=== PATIENT | female | born 1950 | race African-American/Black ===

== ENCOUNTER → 2017-06-10 | Outpatient (CLI) | payer MEDICARE, OTHER ==
[2017-06-10 15:51] LABS: ADD MAN DIFF? NO
[2017-06-10 15:55] LABS: BASO % 0 % (0-3); EOS # 0.3 x10^3/uL (0.0-0.7); EOS % 4 % (0-3); HEMOGLOBIN 14.1 g/dL (12.0-15.5); LYMPH % 27 % (24-48); MEAN CORPUSCULAR HEMOGLOBIN 31 pg (25-35); MEAN CORPUSCULAR HGB CONC 34 g/dL (31-37); MEAN CORPUSCULAR VOLUME 92 fL (79-100); MONO # 0.5 x10^3/uL (0.0-1.1); MONO % 6 % (0-9); NEUT # 4.8 x10^3uL (1.8-7.7); NEUT % 63 % (31-73); PLATELET COUNT 234 x10^3/uL (140-400); RED BLOOD COUNT 4.55 x10^6/uL (3.50-5.40); RED CELL DISTRIBUTION WIDTH 12.7 % (11.5-14.5); WHITE BLOOD COUNT 7.6 x10^3/uL (4.0-11.0)
[2017-06-10 16:05] LABS: PARTIAL THROMBOPLASTIN TIME 28 SEC (24-38); PROTHROMBIN TIME PATIENT 12.8 SEC (11.7-14.0)
[2017-06-10 16:08] LABS: ALBUMIN 3.8 g/dL (3.4-5.0); ANION GAP 6 (6-14); BLOOD UREA NITROGEN 14 mg/dL (7-20); CALCIUM 9.2 mg/dL (8.5-10.1); CARBON DIOXIDE 33 mmol/L (21-32); CHLORIDE 103 mmol/L (98-107); CREATININE 0.9 mg/dL (0.6-1.0); GFR 75.8; GLUCOSE 84 mg/dL (70-99); POTASSIUM 3.5 mmol/L (3.5-5.1); SODIUM 142 mmol/L (136-145)
[2017-06-10 16:18] LABS: BILIRUBIN,URINE NEGATIVE (NEG); CLARITY,URINE CLEAR; COLOR,URINE YELLOW; GLUCOSE,URINE NEGATIVE (NEG); NITRITE,URINE NEGATIVE (NEG); PH,URINE 7.5; PROTEIN,URINE NEGATIVE (NEG-TRACE); UROBILINOGEN,URINE 0.2 mg/dL (0.2 mg/dL)
[2017-06-10 16:31] LABS: BACTERIA,URINE 0 /HPF (0-FEW); SQUAMOUS EPITHELIAL CELL,UR FEW /LPF; WBC,URINE 0 /HPF (0-4)
[2017-06-10 17:01] LABS: SEDIMENTATION RATE 5 (0-25)
[2017-06-11 00:12] LABS: MRSA BY PCR Negative (Negative)
[2017-06-11 06:16] LABS: HEMOGLOBIN A1C 5.4 % (4.8-5.6)
== END | disposition home or self-care (01) ==
LOC: SURGPAT 14:35
DX: Z01.818 Encounter for other preprocedural examination (principal); R94.31 Abnormal electrocardiogram [ECG] [EKG]
CPT/HCPCS: 36415; 71046; 80048; 81001; 82040; 83036; 85025; 85610; 85651; 85730; 87641; 93005

== ENCOUNTER → 2019-11-13 | Outpatient (CLI) | payer MEDICARE, OTHER ==
[2017-06-24 11:51] VITALS: BP 106/63
[~2019-11-13] MED LIST: ASPI-482 PO; ASPI-630 PO; B CO1TAB10 PO; BIOT1CAP3 PO; CELE200C PO; CHLO25TA10 PO; CHOL2000 PO; DUTA0.5C PO; ESTR0.5T3 PO; FERR142T13 PO; FLAX10003 PO; FLAX1CAP PO; FLUO20DR EACH EAR; GABA-585 PO; HYDR-2145 PO; IOHEXOL 180 MG/ML 10 ML VIAL. ONE; LACT460C PO; LYCO10CA PO; MAGN30TA2 PO; MAGN400C PO; METO100T7 PO; MINO60FO3 TP; MULT-460 PO; OXYC10TA46 PO; POLY17PO29 PO; POTA500T5 PO; TRAM50TA PO; TRAZ-118 PO; VITA-8 PO; VITA100022 PO; VITA150T PO; VITA400C37 PO; WARF4TAB64 PO; WARF4TAB68 PO; WARF5TAB2 PO; ZINC30CA PO; ZINC50TA PO; methylPREDNISolone ACETATE 40 MG/ML VIAL. ONE; methylPREDNISolone ACETATE 80 MG/ML VIAL. ONE
--- NOTE | 2019-11-13 14:13 | PAIN ---
DATE OF SERVICE: 11/13/2019 INITIAL CONSULTATION FOR PAIN CLINIC CHIEF COMPLAINT: Low back and left lower extremity pain. HISTORY OF PRESENT ILLNESS: This is a 69-year-old female, who presents with history of pain in low back and left leg for about a year or so. The patient reports she is not sure when it actually started, but it has been bad for about a year, pain in the low back and the lower extremities. The patient has seen an orthopedic surgeon, thinking it maybe her hip, but this has been checked out and an MRI scan was actually done in the lumbar spine, when the hip was normal and showed some significant degenerative changes involving the lumbar disks and facets, multifactorial neural foraminal stenosis bilaterally, most marked at L4-L5 with near complete loss of disk height and diffuse annular disk bulge with marked bilateral neural foraminal stenosis, slightly worse on the left, L5-S1 shows mild diffuse disk bulge and marked facet arthropathy with moderate bilateral neural foraminal stenosis, worse on the left as well. The patient reports the pain is in the low back and lower extremities, mostly in the posterior gluteus, posterior lateral thighs, anterior thighs, posterior calves with numbness and tingling in both the feet and burning in the feet, which has come up over the last year or so. Also, a vibration sense in the left leg significantly. The patient reports the pain is described as constant, intermittent in intensity, but constant, changes during the day, worse with activity, walking, standing, changing positions with numbness in the low back and legs and vibration sense and burning in the feet. The patient rates her disability rating from 0-10, 10 being the worst, is a 9-10 with family and home responsibilities and occupation, 5-6 with recreation and social activity, 5 with sexual behavior, self-care and life support activities. The patient has had a previous physical therapy. She has also had chiropractic treatments and does exercise currently every day with good results, but only temporary. The patient has had trigger point injections for some fibromyalgia pain she had in the past, which were helpful as well. The patient is taking Celebrex as well as Tylenol PM, both of which helped to a mild extent. PAST MEDICAL HISTORY: Significant for hypertension, celiac sprue, cerebral aneurysms, fibromyalgia, alopecia. PREVIOUS SURGERY: Include a right hip replacement in 2016, left hip replacement as well, cholecystectomy, right ear surgery and appendectomy. CURRENT MEDICATIONS: Include dutasteride, metoprolol, Celebrex, vitamin E, vitamin B, multivitamins, zinc, Fo-Ti, vitamin D, and magnesium. ALLERGIES: THE PATIENT IS ALLERGIC TO CODEINE AND PERCOCET. FAMILY HISTORY: Significant for hypertension. SOCIAL HISTORY: The patient does not drink alcohol, does not use any illegal, illicit or recreational drugs. Does not smoke, is and lives with her spouse and lives locally in [place], [place]. The patient reports that she is currently retired. REVIEW OF SYSTEMS: The patient's review of systems is positive for those items mentioned in history of present illness. All systems reviewed and otherwise negative. It is complete, full and well documented on the patient's chart. PHYSICAL EXAMINATION: VITAL SIGNS: The patient's blood pressure 115/61, pulse is 59, respirations are 18, temperature 98.7 degrees Fahrenheit, height 5 feet 4 inches, weight is 129 pounds. GENERAL: The patient is awake, alert, oriented, appropriate, very pleasant demeanor. HEENT: Shows normocephalic, atraumatic. Extraocular movements are intact and symmetrical. Oral cavity shows mucous membranes moist and pink. Dentition is intact. NECK: Shows anterior throat is supple without palpable lymphadenopathy noted. Swallow reflex symmetrical. CHEST: Shows normal on inspection. Breath sounds are clear bilaterally. HEART: Shows S1, S2 clear. No murmurs auscultated. ABDOMEN: Soft, nontender, nondistended. No palpable organomegaly is noted. No rebound or guarding demonstrated. BACK: Shows spine grossly in the midline. Normal appearing thoracic kyphosis and minor flattening of lumbar lordotic curvature. Lumbar paraspinous muscle shows symmetrical on inspection, on palpation shows some moderate tenderness diffusely bilaterally, but only diffusely without significant radiation. The patient has good rotational motion of lumbar spine, both laterally as well as extension and flexion without significant increase in pain, no tenderness over the spinous processes, sacrum or sacroiliac regions with palpation. EXTREMITIES: The patient's lower extremities show deep tendon reflexes at 2+ in the patellar, 1+ tendo-calcaneus tendons. Motor exam is strong with 5/5 dorsiflexion, extension, quadriceps and hamstring flexion symmetrical. Peripheral pulses are 1+ posterior tibial. No peripheral edema is noted bilaterally. Lower extremities are warm and dry to touch, equal in color and appearance. Straight leg raise noted to be negative for reproduction of radicular symptoms bilaterally as well. Gaenslen's and Angel Luis's maneuvers are grossly negative with some mild discomfort in both the hips secondary to previous replacement. The patient is able to stand, stand on her toes without significant difficulty or loss of balance, walks with a normal appearing gait, does not appear to favor the right or left lower extremity significantly, is not using any assistive devices to ambulate. SKIN: Shows warm and dry, good turgor. No edema. No sores, rashes or bruising. IMPRESSION: 1. This is a 69-year-old female with approximate 1-year history of low back pain into the left lower extremity greater than right, but present bilaterally in a radicular fashion. 2. MRI scan of lumbar spine as noted. 3. Hypotension. 4. Cerebral aneurysms. PLAN: Options were discussed with the patient and the patient's spouse who accompanied her to visit today including conservative medical managements, physical therapies and interventional techniques. She would like to pursue interventional techniques. We discussed a lumbar epidural steroid injection using description as well as anatomical models to describe the procedure. Risks were then discussed including, but not limited to bleeding, infection, possibility of epidural hematoma, subsequent neurological compromise, dural puncture, headaches, spinal cord and/or nerve damage, side effects of steroid medication and poor results regarding pain control. The patient understands and wished to proceed. The patient will return to clinic in approximately 2 weeks for followup. She was counseled on return appointment, activity level and side effects to be aware of. DIAGNOSIS: Lumbar radiculopathy with lumbar degenerative disk disease. PROCEDURE: Lumbar epidural steroid injection, translaminar approach at L5-S1 level using C-arm fluoroscopic guidance under sterile prep and drape using local anesthetic. MEDICATION INJECTED: A total of 120 mg Depo-Medrol plus 10 mL of preservative-free normal saline and 2 mL of contrast. CONDITION AT DISCHARGE: Stable. The patient tolerated the procedure well, had no complications. BHAVANA HERNANDEZ MD DR: SONIDO/mohini JOB#: [id number] / [id number] ISAAC Laird MD
== END | disposition home or self-care (01) ==
LOC: PNCL 10:51
PROVIDERS: ATTEND Anesthesiology
DX: M54.16 Radiculopathy, lumbar region (principal); K21.9 Gastro-esophageal reflux disease without esophagitis; Z79.82 Long term (current) use of aspirin; Z79.899 Other long term (current) drug therapy; Z88.5 Allergy status to narcotic agent; Z88.8 Allergy status to other drugs, medicaments and biological substances; Z82.49 Family history of ischemic heart disease and other diseases of the circulatory system; Z80.3 Family history of malignant neoplasm of breast
CPT/HCPCS: 62323; J1030; J1040; Q9965

== ENCOUNTER → 2019-12-17 | Outpatient (CLI) | payer MEDICARE, OTHER ==
[2017-06-24 11:51] VITALS: BP 106/63
--- NOTE | 2019-12-17 12:53 | PAIN ---
DATE OF SERVICE: 12/17/2019 PROGRESS NOTE FOR PAIN CLINIC DIAGNOSIS: Lumbar radiculopathy with lumbar degenerative disk disease. HISTORY OF PRESENT ILLNESS: The patient is a 69-year-old female who returns for followup status post lumbar epidural steroid injection x 1. The patient reports about 90% improvement for the first few weeks. Pain is returning now in the low back and left greater than right lower extremity, but present more in the left in the posterior gluteus, radiating across the back and the posterior thigh on the left side, posterior calf, some on the right gluteus as well, but mostly on the left. The patient reports it is 6 on a scale of 10 at all times over the past week, worst, least and is average and is a 6 on a scale of 10 today. The patient reports it is constant, aching, dull in the low back and shooting in the left lower extremity. The patient also reports some vibrational sensation in the left leg, which is not cleared up as well. The patient reports no new motor or sensory deficits, no new bowel or bladder incontinence or other complaints. PHYSICAL EXAMINATION: VITAL SIGNS: The patient's blood pressure is 119/71, pulse 64, respirations 18, temperature 98.1 degrees Fahrenheit, height 5 feet 4 inches, weight is 129 pounds. GENERAL: The patient is awake, alert, oriented, appropriate, very pleasant demeanor. HEENT: Shows normocephalic, atraumatic. Extraocular movements are intact and symmetrical. Oral cavity shows mucous membranes moist and pink. Dentition is intact. NECK: Shows anterior throat supple without palpable lymphadenopathy noted. Swallow reflex symmetrical. CHEST: Shows normal on inspection. Breath sounds are clear bilaterally. HEART: Shows S1, S2 clear. No murmurs auscultated. ABDOMEN: Soft, nontender, nondistended. No palpable organomegaly is noted. No rebound or guarding demonstrated. BACK: Shows spine grossly in the midline. Normal appearing thoracic kyphosis and lumbar lordotic curvature. Lumbar paraspinous muscle shows symmetrical on inspection, with palpation shows some mild tenderness, but only in the low lumbar distribution diffusely, but symmetrical without evidence of atrophy, hypertrophy, no trigger points. The patient shows full rotational motion of lumbar spine, both laterally as well as extension and flexion without difficulty. EXTREMITIES: Lower extremities show deep tendon reflexes at 2+ in the patellar, 1+ tendo-calcaneus tendons. Motor exam is strong with 5/5 dorsiflexion, extension and equal bilaterally. Peripheral pulses are 2+. No peripheral edema noted. Options were discussed with the patient. The patient's old chart was reviewed as her current medication regimen updated. Current review of systems updated today as well and we will proceed with a second in a series of lumbar epidural steroid injection today with fluoroscopic guidance. Risks were discussed including but not limited to bleeding, infection, possibility of epidural hematoma, subsequent neurological compromise, dural puncture, headaches, spinal cord and/or nerve damage, side effects of steroid medication and poor results regarding pain control. The patient understands and wished to proceed. The patient will return to clinic in approximately 2 weeks for followup. She was counseled on return appointment, activity level and side effects to be aware of. DIAGNOSIS: Lumbar radiculopathy with lumbar degenerative disk disease. PROCEDURE: Lumbar epidural steroid injection, translaminar approach at L5-S1 level using C-arm fluoroscopic guidance under sterile prep and drape using local anesthetic. MEDICATION INJECTED: A total of 120 mg Depo-Medrol plus 10 mL of preservative-free normal saline and 2 mL of contrast. CONDITION AT DISCHARGE: Stable. The patient tolerated procedure well, had no complications. BHAVANA HERNANDEZ MD DR: SONIDO/mohini JOB#: [id number] / [id number]
== END | disposition home or self-care (01) ==
LOC: PNCL 11:41
PROVIDERS: ATTEND Anesthesiology
DX: M51.16 Intervertebral disc disorders with radiculopathy, lumbar region (principal); Z79.82 Long term (current) use of aspirin; Z79.899 Other long term (current) drug therapy; Z88.5 Allergy status to narcotic agent; Z88.8 Allergy status to other drugs, medicaments and biological substances; Z82.49 Family history of ischemic heart disease and other diseases of the circulatory system
CPT/HCPCS: 62323; J1030; J1040; Q9965